=== PATIENT | female | born 1975 | race Caucasian/White ===

== ENCOUNTER 2017-03-01 08:22 | Emergency (ER) | payer MEDICAID ==
--- NOTE | 2017-03-01 08:27 | EDPHY ---
H & P Time Seen by Provider: 03/01/17 08:27 HPI/ROS: CHIEF COMPLAINT: Toothache HISTORY OF PRESENT ILLNESS: Patient has a history of having dental caries and tooth infections in the past. She has had worsening pain for the last 24 hr on her right lower jaw tooth which is severe and radiates to her right ear. Not associated with trouble breathing or swallowing or change in her voice. REVIEW OF SYSTEMS: Subjective fever last night PAST MEDICAL HISTORY: , ectopic, pediatric heart surgery. Social history: Remote history of substance abuse, currently recently got insurance. General Appearance: ice pack on right cheek. Alert and ambulatory. Tympanic membranes normal bilaterally. No trismus and uvula is midline, pharynx is normal. Patient has cracked right posterior molars x2, tenderness to percussion of the posterior 2 molars on the right lower jaw. Minimal right sided lower gum swelling with no fluctuance. Floor of the mouth is normal. Voice is normal. No stridor or drooling, no respiratory distress, normal range of motion of the neck. Slight right cheek swelling without fluctuance or external skin changes. Emergency Department course/MDM: PDMP search 06/29/16 only. Discussed single dose Percocet without prescription, patient declined dental block, she is in agreement with no opioid prescription. Clindamycin prescription 300 mg orally three times daily 10 days, referred to dentist or oral surgeon. Warned that antibiotics are not a permanent solution for this problem. Constitutional: Initial Vital Signs Temperature (C) 36.8 C 03/01/17 08:25 Heart Rate 76 03/01/17 08:25 Respiratory Rate 16 03/01/17 08:25 Blood Pressure 140/78 H 03/01/17 08:25 O2 Sat (%) 98 03/01/17 08:25 O2 Delivery Mode Room Air Allergies/Adverse Reactions: Penicillins Allergy (Verified 03/01/17 08:29) Pt reports anaphylaxis Home Medications: Medication Instructions Recorded Clindamycin HCl [Clindamycin] 300 mg PO TID #30 cap 03/01/17 MDM/Departure - MDM Medications Given: Discontinued Medications Clindamycin (Clindamycin) 300 mg PO EDNOW ONE PRN Reason: Protocol Stop: 03/01/17 08:43 Last Admin: 03/01/17 08:46 Dose: 300 mg Oxycodone/Acetaminophen (Percocet 5/325) 1 tab PO EDNOW ONE Stop: 03/01/17 08:41 Last Admin: 03/01/17 08:46 Dose: 1 tab - Depart Disposition: Home, Routine, Self-Care Clinical Impression: Tooth pain, Dental infection Condition: Good Instructions: Clindamycin (By mouth), Toothache (ED) Additional Instructions: Followup with dentist or Dr. Boucher this week in the office. Return for worsening pain or swelling, fever, trouble breathing or swallowing. Oral ibuprofen 600 mg every 8 hr as needed for pain over the next 5 days. Prescriptions: Clindamycin HCl [Clindamycin] 300 mg PO TID #30 cap Referrals: Mi Boucher MD [Medical Doctor] - As per Instructions
[2017-03-01 08:29] VITALS: BP 140/78; PULSE 76; RESP 16; TEMP 98.2; O2SAT 98
[2017-03-01] MEDS ORDERED: OXYCODONE/APAP 5/325 TAB PO ONE (08:40)
[2017-03-01] MEDS ORDERED: CLINDAMYCIN 150 MG CAP PO ONE (08:42)
== END 2017-03-01 08:50 | disposition home or self-care (01) ==
LOC: CED 08:22
DX: K04.7 Periapical abscess without sinus (principal)